=== PATIENT | female | born 1960 | race Caucasian/White ===

== ENCOUNTER 2018-11-11 10:55 | Day surgery (SDC) | payer MEDICAID ==
[2018-11-11] MEDS ORDERED: LR 1,000 ML IV ONE (11:29)
[2018-11-11] MEDS ORDERED: LIDOCAINE 1% 2 ML INJ ONE (11:34)
[2018-11-11] MEDS ORDERED: INDOMETHACIN 50 MG SUPP PR PRN (12:08)
--- NOTE | 2018-11-11 12:08 | PDGENHP ---
History & Physical Chief Complaint: dysphagia, weight loss History of Present Illness: 58 year old female presents for evaluation of dysphagia, hematochezia, and weight loss. Also complaining of pain during bowel movement. Pertinent Past, Social, Family History: PMHx: Downs syndrome, JALEN, VSD. FaMHx; sis - skin cancer. SoHx: No alcohol or cigs Relevant Physical Exam: HEENT: anicteric. CV: RRR +s1s2 + murmur. Lungs: CTAB. Abd; soft, nt, + bs Cardiorespiratory Assessment: ASA 3
[2018-11-11] MEDS ORDERED: NS 500 ML IV SCH (12:15)
[2018-11-11] MEDS ORDERED: PROPOFOL/EMULSION 500 MG/50 ML BOTTLE IV ONE (12:18)
--- NOTE | 2018-11-11 12:25 | PDANEPAE ---
ANE History of Present Illness 58 year old female for EGD and colonoscopy for abdominal pain. ANE Past Medical History - Cardiovascular History Hx Hypertension: No Hx Arrhythmias: No Hx Chest Pain: No Hx Coronary Artery / Peripheral Vascular Disease: No Hx CHF / Valvular Disease: Yes Hx Palpitations: No Cardiovascular History Comment: CHF 4 YRS AGO. PULM HTN - Pulmonary History Hx COPD: No Hx Asthma/Reactive Airway Disease: No Hx Recent Upper Respiratory Infection: No Hx Oxygen in Use at Home: No Hx Sleep Apnea: Yes Pulmonary History Comment: BRONCHITIS 07/2018. URI 08/2018. DX JALEN USES C-PAP - Neurologic History Hx Cerebrovascular Accident: No Hx Seizures: No Hx Dementia: Yes Neurologic History Comment: BEGINNING - Endocrine History Hx Diabetes: No - Renal History Hx Renal Disorders: Yes Renal History Comment: HX OF NODULE. URGE INCONT - Liver History Hx Hepatic Disorders: No - Neurological & Psychiatric Hx Hx Neurological and Psychiatric Disorders: No - Cancer History Hx Cancer: No - Congenital Disorder History Hx Congenital Disorders: Yes Congenital History Comment: DOWN'S SYNDROME - GI History Hx Gastrointestinal Disorders: Yes Gastrointestinal History Comment: DYSPLASIA. GERD. WEIGHT LOSS. CHRONIC CONSTIPATION - Other Health History Other Health History: ARTHRITIS. FULL DENTURES - Chronic Pain History Chronic Pain: Yes (ARTHRITIS,JOINT FATIQUE) - Surgical History Prior Surgeries: TUBAL LIGATION. CARPAL TUNNEL. ATRIAL SEPT DEFECT. THYROID NODULE ANE Review of Systems Review of systems is: negative Review of Systems: - Exercise capacity METS (RN): 3 METS ANE Patient History - Allergies Allergies/Adverse Reactions: No Known Allergies Allergy (Verified 04/12/15 00:30) - Home Medications Home Medications: Calcium Carbonate [Tums 500MG (OTC)] 1,000 mg PO DAILY 08/22/13 [Last Taken 1 Week Ago ~11/04/18] Cholecalciferol (Vitamin D3) [Vitamin D3] 1,200 unit PO DAILY 08/22/13 [Last Taken 1 Day Ago ~11/10/18] Docusate Sodium [Colace] 100 mg PO HS 08/22/13 [Last Taken 1 Day Ago ~11/10/18] Fluticasone Nasal [Flonase Nasal [place] (RX)] 1 sprays NASAL DAILY 08/22/13 [ Last Taken 1 Day Ago ~11/10/18] Herbals/Supplements -Info Only 1 each PO AD 08/22/13 [Last Taken 1 Week Ago ~] Lansoprazole [Prevacid 24hr] 30 mg PO BID 08/22/13 [Last Taken 1 Day Ago ~] Levothyroxine Sodium 75 mcg PO DAILY 08/22/13 [Last Taken 1 Day Ago ~11/10/18] Multivitamins [Tab-A-Ulises] 1 each PO DAILY 08/22/13 [Last Taken 1 Week Ago ~] Weston-3 Fatty Acids/Fish Oil [Weston 3 1,000 mg Softgel] 1 each PO HS 08/22/13 [ Last Taken 1 Week Ago ~11/04/18] Polyethylene Glycol 3350 [Miralax 17 gm (OTC)] 17 gm PO BID 08/22/13 [Last Taken 1 Day Ago ~11/10/18] Sertraline HCl [Zoloft 100mg (RX)] 100 mg PO DAILY 08/22/13 [Last Taken 1 Day Ago ~11/10/18] Sertraline HCl [Zoloft] 25 mg PO HS 08/22/13 [Last Taken 1 Day Ago ~11/10/18] Vitamin B Complex [Vitamin B Complex (OTC)] 1 each PO DAILY 08/22/13 [Last Taken 1 Week Ago ~11/04/18] risperiDONE [Risperdal 0.5mg (RX)] 0.5 mg PO HS 08/22/13 [Last Taken 1 Day Ago ~ 11/10/18] Amiloride [Amiloride 5 MG (RX)] 10 mg PO DAILY 04/12/15 [Last Taken 1 Week Ago ~ 11/04/18] L. Acidophilus/Pectin, [place] [Acidophilus-Pectin Captab] 1 each PO DAILY [Last Taken 1 Day Ago ~11/10/18] ACETAMINOPHEN BID 10/31/18 [Last Taken 1 Day Ago ~11/10/18] ACETAZOLAMIDE DAILY 10/31/18 [Last Taken 1 Day Ago ~11/10/18] Cymbalta HS 10/31/18 [Last Taken 1 Day Ago ~11/10/18] Naproxen DAILY 10/31/18 [Last Taken 1 Day Ago ~11/10/18] Ranitidine HCl BID 10/31/18 [Last Taken 1 Day Ago ~11/10/18] - NPO status NPO Since - Liquids (Date): 11/11/18 NPO Since - Liquids (Time): 03:00 NPO Since - Solids (Date): 11/10/18 NPO Since - Solids (Time): 12:00 - Smoking Hx Smoking Status: Former smoker ANE Labs/Vital Signs - Vital Signs Blood Pressure: 86/55 Heart Rate: 80 Respiratory Rate: 22 O2 Sat (%): 90 Height: 142.24 cm Weight: 41.73 kg ANE Physical Exam - Airway Neck exam: FROM Mallampati Score: Class 2 Mouth exam: dentures - Pulmonary Pulmonary: no respiratory distress - Cardiovascular Cardiovascular: regular rate and rhythym - ASA Status ASA Status: II ANE Anesthesia Plan Anesthesia Plan: MAC
[2018-11-11] MEDS ORDERED: ONDANSETRON 4 MG/2 ML VIAL IVP PRN (12:34)
[2018-11-11] MEDS ORDERED: fentaNYL 100 MCG/2 ML INJ IVP PRN (12:34)
[2018-11-11] MEDS ORDERED: NALOXONE HCL 0.4 MG/ML INJ IVP PRN (12:34)
--- NOTE | 2018-11-11 13:03 | GIREPORT ---
[facility] Surgical Services - Endoscopy Department Patient Name: Renita Reagan Procedure Date: 11/11/2018 12:10 PM Patient Type: Outpatient Attending MD/ ER Physician: Colton Estevez MD Procedure: Upper GI endoscopy Indications: Dysphagia, Weight loss Patient Profile: 58 year old female with a history of JALEN, Downs syndrome, VSD presents for evaluation of dysphagia/heartburn/epigastric abdominal pain. Providers: Colton Estevez MD Medicines: Monitored Anesthesia Care Complications: No immediate complications. Estimated blood loss: Minimal. Description of Procedure: After obtaining informed consent, the endoscope was passed under direct vision. Throughout the procedure, the patient's blood pressure, pulse, and oxygen saturations were monitored continuously.The upper GI endoscopy w as accomplished without difficulty. The patient tolerated the procedure we ll. The Endoscope was introduced through the mouth, and advanced to the sec ond part of duodenum. Findings: The examined esophagus was normal. Biopsies were taken with a cold forceps in the middle third of the esop hagus for histology. A TTS dilator was passed through the scope. Dilation wit h a 15-16.5-18 mm balloon dilator was performed to 18 mm in the entire esop hagus. A small hiatal hernia was present. Patchy mildly erythematous mucosa was found in the gastric body and in the gastric antrum. Biopsies were taken with a cold forceps for histology. The examined duodenum was normal. Biopsies for histology were taken wit h a cold forceps for evaluation of celiac disease. Estimated Blood Loss: Estimated blood loss was minimal. Post Op Diagnosis: - Normal esophagus. - Small hiatal hernia. - Erythematous mucosa in the gastric body and antrum. Biopsied. - Normal examined duodenum. Biopsied. - Biopsies were taken with a cold forceps for histology in the middle t hird of the esophagus. - Empiric Dilation performed in the entire esophagus. - Etiology? No obvious cause of symptoms seen. No stricture or mass not ed. Secondary to reflux? Await biopsy results. Can try trial of full dose P PI BID for 6 weeks. Recommendation: - Perform a colonoscopy today. - Use a proton pump inhibitor PO BID. - Follow an antireflux regimen. - Thank you for allowing me to participate in the care of your patient. Attending Participation: I personally performed the entire procedure. Colton Estevez MD Colton Estevez MD 11/11/2018 1:02:46 PM This report has been signed electronicallyColton Estevez MD Number of Addenda: 0 Note Initiated On: 11/11/2018 12:10 PM [email or web address]
--- NOTE | 2018-11-11 13:10 | GIREPORT ---
[facility] Surgical Services - Endoscopy Department Patient Name: Renita Reagan Procedure Date: 11/11/2018 12:14 PM Patient Type: Outpatient Attending MD/ ER Physician: Colton Estevez MD Procedure: Colonoscopy Indications: Hematochezia, Rectal pain Patient Profile: 58 year old female presents for evaluation of hematochezia/anal pain/ch miguel a in bowel habits. She had a prior attempt at a colonoscopy in 2010 but t he procedure was aborted due to poor prep. Providers: Colton Estevez MD Medicines: Monitored Anesthesia Care Complications: No immediate complications. Estimated blood loss: Minimal. Description of Procedure: After obtaining informed consent, the scope was passed under direct vis ion. Throughout the procedure, the patient's blood pressure, pulse, and oxyg en saturations were monitored continuously.The colonoscopy was performed without difficulty. The patient tolerated the procedure well. The quali ty of the bowel preparation was good. The Colonoscope with irrigation channel was introduced through the anus and advanced to the terminal ileum. The ter ethan ileum, ileocecal valve, appendiceal orifice, and rectum were photograph ed. Findings: Hemorrhoids were found on perianal exam. A healed anal fissure was also seen. The colon (entire examined portion) appeared normal. Biopsies for histo logy were taken with a cold forceps for evaluation of microscopic colitis. The terminal ileum appeared normal. Estimated Blood Loss: Estimated blood loss was minimal. Post Op Diagnosis: - Hemorrhoids found on perianal exam. Healed anal fissure noted. - The entire examined colon is normal. Biopsied. - The examined portion of the ileum was normal. - Etiology? Suspect blood is from anal fissure/hemorrhoids. Anal fissur e appears healed. If recurrent symptoms recommend 2% dilitiazem ointment BID to anal area as well as Lidocaine 4% jelly BID to anal area. Recommendation: - Advance diet as tolerated. - Continue present medications. - Await pathology results. - If anal pain continues, would treat her empirically for an anal fissu re. - Repeat colonoscopy in 10 years for screening purposes. - Thank you for allowing me to participate in the care of your patient. Attending Participation: I personally performed the entire procedure. Colton Estevez MD Colton Estevez MD 11/11/2018 1:09:46 PM This report has been signed electronicallyColton Estevez MD Number of Addenda: 0 Note Initiated On: 11/11/2018 12:14 PM Total Procedure Duration Time 0 hours 17 minutes 47 seconds [email or web address]}
--- NOTE | 2018-11-11 13:13 | POSTANESTH ---
Post Anesthetic Evaluation Cardiovascular Status: Normal, Stable Respiratory Status: Normal, Stable Level of Consciousness/Mental Status: Moderately Sleepy Pain Control: Adequate, Prn Tx Ordered Nausea/Vomiting Control: Adequate, Prn Tx Ordered Complications Possibly Related to Anesthesia: None Noted
[2018-11-11 15:25] VITALS: BP 88/69
== END 2018-11-11 15:18 ==
LOC: FSGY 10:55
PROVIDERS: ATTEND Internal Medicine Gastroenterology
DX: R13.10 Dysphagia, unspecified (principal); R63.4 Abnormal weight loss; K44.9 Diaphragmatic hernia without obstruction or gangrene; K92.1 Melena; K64.9 Unspecified hemorrhoids; K62.89 Other specified diseases of anus and rectum; M11.271 Other chondrocalcinosis, right ankle and foot; Q90.9 Down syndrome, unspecified; K21.9 Gastro-esophageal reflux disease without esophagitis; F42.9 Obsessive-compulsive disorder, unspecified; G47.33 Obstructive sleep apnea (adult) (pediatric); I50.30 Unspecified diastolic (congestive) heart failure; H26.9 Unspecified cataract; I27.20 Pulmonary hypertension, unspecified; Q21.0 Ventricular septal defect; M81.0 Age-related osteoporosis without current pathological fracture; Z79.82 Long term (current) use of aspirin; Z79.899 Other long term (current) drug therapy; Z95.2 Presence of prosthetic heart valve
CPT/HCPCS: 43239; 43249; 45380; C1726; J2704